=== PATIENT | female | born 1970 | race Caucasian/White ===

== ENCOUNTER 2016-08-21 12:32 | Emergency (ER) | payer BC ==
[2016-08-21 14:31] VITALS: BP 139/80
--- NOTE | 2016-08-21 15:09 | UC ---
UC General HPI - HPI Summary HPI Summary: The patient comes in today for: 1. Diarrhea/cramps: Onset: 5 days--"I just could not take it any more." Palliative/provocative: Imodium helped. Quality: Cramping. Region: Abdomen. Severity: 0/10 at this time. Time: Stools are episodic. Associated symptoms: Back pain: Present Vomiting: None--but no appetite. "I feel like I am having a baby out my butt." Fevers: None known. Stool frequency: 15-20 stools/day. Primary care provider: "I can't say her name--she is over at [place]." She has a fatty liver and is supposed to see GI specialist in 2 days. Stools: Blood and mucous in the stools. She states that the blood is "streaks--like it is irritated." Urination: "It's been good" up to today. Today, the frequency is less, but she urinated before she came in here and the urine was a light yellow. Previous GI problems: None. Travel: None. Previous antibiotics: Augmentin used the end of June. * - History of Current Complaint Chief Complaint: UCGI Stated Complaint: DIARRHEA Time Seen by Provider: 08/21/16 15:02 Hx Obtained From: Patient - Allergy/Home Medications Allergies/Adverse Reactions: Allergies Allergy/AdvReac Type Severity Reaction Status Date / Time No Known Allergies Allergy Verified 11/02/15 16:22 Home Medications: Home Medications Hydrochlorothiazide TAB* [Hydrodiuril TAB*] 25 mg PO DAILY 08/21/16 [History Confirmed 08/21/16] Levothyroxine TAB* [Synthroid TAB*] 50 mcg PO 08/21/16 [History Confirmed ] Losartan Potassium [Cozaar] 50 mg PO 08/21/16 [History] PMH/Surg Hx/FS Hx/Imm Hx Previously Healthy: No Endocrine History Of: Reports: Thyroid Disease Denies: Diabetes, Hyperthyroidism, Hypothyroidism, Dyslipidemia Cardiovascular History Of: Reports: Hypertension - NOT MEDICATED Denies: Cardiac Disorders, Pacemaker/ICD, Myocardial Infarction, Congestive Heart Failure, Atrial Fibrillation, Deep Vein Thrombosis, Bleeding Disorders Respiratory History Of: Denies: COPD, Asthma, Bronchitis, Pneumonia, Pulmonary Embolism GI/ History Of: Reports: Gastrointestinal Bleed - See HPI. Denies: Gastroesophageal Reflux, Ulcer, Gall Bladder Disease, Kidney Stones, Diverticulitis, Renal Disease, Urosepsis Neurological History Of: Denies: TIA, CVA, Dementia, Seizures, Migraine Psychological History Of: Denies: Anxiety, Depression, Bipolar Disorder, Schizophrenia, Post Traumatic Stress Disorder Cancer History Of: Denies: Lung Cancer, Colorectal Cancer, Breast Cancer, Prostate Cancer, Cervical Cancer Other History Of: Negative For: HIV, Hepatitis B, Hepatitis C, Anticoagulant Therapy - Surgical History Surgical History: Yes Surgery Procedure, Year, and Place: 2002 BREAST AUGMENTATION. 1991 . 1999 D&C. 2000 TUBAL LIGATION. 2000 VEINS STRIPPING - Family History Known Family History: Positive: Cardiac Disease, Hypertension - Social History Occupation: Employed Full-time Alcohol Use: None Substance Use Type: None Smoking Status (MU): Former Smoker Type: Cigarettes Amount Used/How Often: 1/2 PPD Household Exposure Type: Cigarettes Review of Systems Constitutional: Negative Skin: Negative Eyes: Negative ENT: Negative Respiratory: Negative Cardiovascular: Negative Gastrointestinal: Diarrhea All Other Systems Reviewed And Are Negative: Yes Physical Exam Triage Information Reviewed: Yes Appearance: Well-Appearing, No Pain Distress, Well-Nourished Vital Signs: Initial Vital Signs Temp 98.5 F 08/21/16 14:27 Pulse 86 08/21/16 14:27 Resp 18 08/21/16 14:27 BP 139/80 08/21/16 14:27 Pulse Ox 98 08/21/16 14:27 Vital Signs Reviewed: Yes Eyes: Positive: Conjunctiva Clear. Negative: Discharge ENT: Positive: Hearing grossly normal. Negative: Pharyngeal erythema, Nasal congestion, Nasal drainage, TM bulging, TM dull, TM red, Tonsillar swelling, Tonsillar exudate Dental: Negative: Gross Decay/Caries @, Dental Fracture @ Neck: Positive: Supple, Nontender, No Lymphadenopathy. Negative: Nuchal Rigidity Respiratory: Positive: Chest non-tender, Lungs clear, No respiratory distress, No accessory muscle use Cardiovascular: Positive: RRR, No Murmur Abdomen Description: Positive: Nontender, No Organomegaly, Soft. Negative: Distended, Guarding Bowel Sounds: Positive: Present Musculoskeletal: Positive: Strength Intact, ROM Intact, No Edema Neurological: Positive: Alert, Muscle Tone Normal Psychological: Positive: Age Appropriate Behavior, Consolable Skin: Negative: rashes, breakdown Course/Dx - Differential Dx - Multi-Symptom Provider Diagnoses: Gastroenteritis Discharge - Discharge Plan Condition: Stable Disposition: HOME Patient Education Materials: Gastroenteritis (ED) Referrals: No Primary Care Phys,NOPCP [Primary Care Provider] - 1 Week (Please contact your primary care provider's office at [place] in the morning for a follow-up evaluation. If you get worse between now and then, please go to the ER.)
== END 2016-08-21 15:44 | disposition home or self-care (01) ==
LOC: UCEAST 12:32
DX: K52.9 Noninfective gastroenteritis and colitis, unspecified (principal); E07.9 Disorder of thyroid, unspecified; I10 Essential (primary) hypertension; K92.2 Gastrointestinal hemorrhage, unspecified; Z87.891 Personal history of nicotine dependence
CPT/HCPCS: 82272; 83630; 87045; 87046; 87493; 87899; 99212; G0463

== ENCOUNTER 2018-06-25 15:10 | Emergency (ER) | payer BC ==
[2018-06-25 15:34] VITALS: BP 178/85
--- NOTE | 2018-06-25 16:39 | UC ---
Throat Pain/Nasal Vitaly HPI - HPI Summary HPI Summary: 48 y/o female with h/o HTN, poorly controlled presents with nasal congestions, cough, ear pain, fever for past 24 hours. States stympoms started 1 week ago, continued but worsened over weekend. Was seen by PCP- lungs clear wed. h/ o c diff after amoxicillin. - History of Current Complaint Chief Complaint: UCGeneralIllness Stated Complaint: COUGH Time Seen by Provider: 06/25/18 16:12 Hx Obtained From: Patient Hx Last Menstrual Period: 06/27/15 (FIRST SINCE OCTOBER 2014) ?: No Onset/Duration: Sudden Onset, Lasting Days, Worse Since - 24 hours Severity: Moderate Pain Intensity: 8 Pain Scale Used: 0-10 Numeric Cough: Nonproductive Related History: Smoking - d/c'd 2 yrs ago - Allergies/Home Medications Allergies/Adverse Reactions: Allergies Allergy/AdvReac Type Severity Reaction Status Date / Time No Known Allergies Allergy Verified 06/25/18 15:35 Home Medications: Home Medications Sertraline* [Zoloft*] 25 mg PO DAILY 06/25/18 [History Confirmed 06/25/18] buPROPion TAB* [Wellbutrin TAB*] 75 mg PO DAILY 06/25/18 [History Confirmed ] PMH/Surg Hx/FS Hx/Imm Hx Previously Healthy: Yes - htn Other History Of: Negative For: HIV, Hepatitis B, Hepatitis C, Anticoagulant Therapy - Surgical History Surgical History: Yes Surgery Procedure, Year, and Place: 2002 BREAST AUGMENTATION. 1991 . 1999 D&C. 2000 TUBAL LIGATION. 2000 VEINS STRIPPING - Family History Known Family History: Positive: None, Cardiac Disease, Hypertension - Social History Alcohol Use: Rare Substance Use Type: None Smoking Status (MU): Former Smoker Type: Cigarettes Amount Used/How Often: 1/2 PPD Household Exposure Type: Cigarettes Review of Systems All Other Systems Reviewed And Are Negative: Yes Constitutional: Positive: Fever, Chills, Fatigue ENT: Positive: Sore Throat, Ear Ache, Nasal Discharge, Sinus Congestion, Sinus Pain/Tenderness Respiratory: Positive: Cough Neurological: Positive: Headache Is Patient Immunocompromised?: No Physical Exam Triage Information Reviewed: Yes Appearance: No Pain Distress, Well-Nourished, Ill-Appearing - mild Vital Signs: Initial Vital Signs Temp 101.5 F 06/25/18 15:30 Pulse 96 06/25/18 15:30 Resp 18 06/25/18 15:30 BP 178/85 06/25/18 15:30 Pulse Ox 98 06/25/18 15:30 Vital Signs Reviewed: Yes Eyes: Positive: Conjunctiva Clear ENT: Positive: Pharynx normal, TM red - L side w/ fluid levels b/l, Sinus tenderness - frontal, max, Uvula midline. Negative: Tonsillar swelling, Tonsillar exudate Neck: Positive: Supple, Nontender, No Lymphadenopathy. Negative: Nuchal Rigidity, Enlarged Nodes @ Respiratory: Positive: Chest non-tender, Lungs clear, Normal breath sounds, No respiratory distress, No accessory muscle use. Negative: Crackles, Rhonchi, Stridor, Wheezing Cardiovascular: Positive: RRR, No Murmur Neurological Exam: Normal Psychological Exam: Normal Throat Pain/Nasal Course/Dx - Course Course Of Treatment: sinusitis, abx given, doxy due to less likely chance f c diff & good tx fr sinusitis. fu with primary within 1-2 days if no improvement - Differential Dx/Diagnosis Differential Diagnosis/HQI/PQRI: Influenza, Pharyngitis, Sinusitis, Tonsillitis Provider Diagnosis: Sinusitis Discharge - Sign-Out/Discharge Documenting (check all that apply): Patient Departure All imaging exams completed and their final reports reviewed: No Studies - Discharge Plan Condition: Good Disposition: HOME Prescriptions: DOXYcycline CAP(*) [DOXYcycline 100MG CAP(*)] 100 mg PO BID #14 cap Patient Education Materials: Sinusitis (ED) Forms: *Work Release Referrals: No Primary Care Phys,NOPCP [Primary Care Provider] - Additional Instructions: - Increase fluid intake - Humidifier at night to help with coughing - Good Hygiene, hand washing to prevent spread - Over the counter medications for symptoms - Motrin/ Tylenol as needed for pain, fever - Go to hospital with worsening headache, fever > 102, neck pain, shortness of breath - Antibiotics as directed - Work note given - Billing Disposition and Condition Condition: GOOD Disposition: Home
== END 2018-06-25 16:46 | disposition home or self-care (01) ==
LOC: UCEAST 15:10
DX: J32.9 Chronic sinusitis, unspecified (principal); I10 Essential (primary) hypertension; Z87.891 Personal history of nicotine dependence
CPT/HCPCS: 99212; G0463

== ENCOUNTER 2019-06-20 08:21 | Emergency (ER) | payer BC ==
[2019-06-20 08:39] VITALS: BP 00/00
--- NOTE | 2019-06-20 10:10 | UC ---
Throat Pain/Nasal Vitaly HPI - HPI Summary HPI Summary: 49-year-old woman comes in with a chief complaint of 2 weeks of upper respiratory tract infection symptoms. Initially she had influenza-like symptoms with fevers chills body aches headache. Also has had rhinorrhea. The fevers and chills and body aches have gone away however the sinus congestion has remained. Patient has yellow and green rhinorrhea. Also has been having a cough. For couple of days she felt like she had chest congestion now she feels that she does not have chest congestion. She has a history of pneumonia she does not feel like this is pneumonia at this time. Also has a history of C. difficile after being treated with amoxicillin. Denies any wheezing no history of asthma. She quit smoking 3 years ago. - History of Current Complaint Chief Complaint: UCGeneralIllness Stated Complaint: RESP COMPLAINT Time Seen by Provider: 06/20/19 09:45 Hx Last Menstrual Period: 06/27/15 (FIRST SINCE OCTOBER 2014) Pain Intensity: 0 - Allergies/Home Medications Allergies/Adverse Reactions: Allergies Allergy/AdvReac Type Severity Reaction Status Date / Time No Known Allergies Allergy Verified 06/20/19 08:39 Home Medications: Home Medications Levothyroxine TAB* [Synthroid TAB*] 50 mcg PO DAILY 08/21/16 [History Confirmed 06/20/19] DOXYcycline CAP(*) [DOXYcycline 100MG CAP(*)] 100 mg PO BID #20 cap 06/20/19 [Rx ] Fluticasone NASAL SPRAY 50MCG* [Flonase NASAL SPRAY 50MCG*] 2 spray BOTH NARES DAILY #1 btl 06/20/19 [Rx] Spironolact/Hydrochlorothiazid [Spironolactone-Hctz 25-25 Tab] 1 tab PO DAILY [History Confirmed 06/20/19] PMH/Surg Hx/FS Hx/Imm Hx Previously Healthy: Yes Respiratory History: Pneumonia Other GI/ History: C DIFF Other History Of: Negative For: HIV, Hepatitis B, Hepatitis C, Anticoagulant Therapy - Surgical History Surgical History: Yes Surgery Procedure, Year, and Place: 2002 BREAST AUGMENTATION. 1991 . 1999 D&C. 2000 TUBAL LIGATION. 2000 VEINS STRIPPING - Family History Known Family History: Positive: None, Cardiac Disease, Hypertension - Social History Alcohol Use: Rare Substance Use Type: None Smoking Status (MU): Former Smoker Type: Cigarettes Amount Used/How Often: 1/2 PPD Household Exposure Type: Cigarettes Review of Systems All Other Systems Reviewed And Are Negative: Yes Constitutional: Positive: Other - SEE HPI Skin: Positive: Negative Eyes: Positive: Negative ENT: Positive: Nasal Discharge, Sinus Congestion, Sinus Pain/Tenderness Respiratory: Positive: Cough, Other - SEE HPI Cardiovascular: Positive: Negative Gastrointestinal: Positive: Negative Motor: Positive: Negative Neurovascular: Positive: Negative Musculoskeletal: Positive: Myalgia Neurological/Mental Status: Positive: Headache Psychological: Positive: Negative Is Patient Immunocompromised?: No Physical Exam Triage Information Reviewed: Yes Appearance: No Pain Distress, Well-Nourished, Ill-Appearing - MILD Vital Signs: Initial Vital Signs Temp 99.2 F 06/20/19 08:33 Pulse 73 06/20/19 08:33 Resp 15 06/20/19 08:33 BP 00/00 06/20/19 08:33 Pulse Ox 100 06/20/19 08:33 Vital Signs Reviewed: Yes Eye Exam: Normal Eyes: Positive: Conjunctiva Clear ENT: Positive: Pharyngeal erythema, Nasal congestion, Nasal drainage, TMs normal , Sinus tenderness Neck: Positive: Supple Respiratory: Positive: Lungs clear, Normal breath sounds, No respiratory distress Cardiovascular: Positive: RRR Musculoskeletal: Positive: Strength Intact, ROM Intact Neurological: Positive: Alert, Muscle Tone Normal Psychological: Positive: Age Appropriate Behavior Skin Exam: Normal Throat Pain/Nasal Course/Dx - Differential Dx/Diagnosis Provider Diagnosis: Sinusitis Discharge ED - Sign-Out/Discharge Documenting (check all that apply): Patient Departure All imaging exams completed and their final reports reviewed: No Studies - Discharge Plan Condition: Stable Disposition: HOME Prescriptions: DOXYcycline CAP(*) [DOXYcycline 100MG CAP(*)] 100 mg PO BID #20 cap Fluticasone NASAL SPRAY 50MCG* [Flonase NASAL SPRAY 50MCG*] 2 spray BOTH NARES DAILY #1 btl Patient Education Materials: Sinusitis (ED) Forms: *Work Release Referrals: [facility] [place] [facility] [Outside] Additional Instructions: FOLLOW UP WITH YOUR DOCTOR IF NOT COMPLETELY IMPROVED. GET REEVALUATED SOONER IF NOT IMPROVED OR WORSE OR ANY QUESTIONS OR CONCERNS. - Billing Disposition and Condition Condition: STABLE Disposition: Home
== END 2019-06-20 10:21 | disposition home or self-care (01) ==
LOC: UCEAST 08:21
DX: J32.9 Chronic sinusitis, unspecified (principal); M79.10 Myalgia, unspecified site; Z87.891 Personal history of nicotine dependence
CPT/HCPCS: 99212; G0463